=== PATIENT | male | born 1950 | race Caucasian/White ===

== ENCOUNTER 2024-05-13 13:03 | Outpatient (CLI) | payer MEDICARE, OTHER, SELFPAY ==
--- NOTE | 2024-05-13 13:05 | MR_ITS ---
FINAL REPORT CLINICAL HISTORY: Cervical spondylosis with radiculopathy COMPARISON: None FINDINGS: Multiplanar MR imaging of the cervical spine was performed without contrast. There is motion artifact on many of the images decreasing sensitivity of this exam. On the sagittal T2-weighted images, disc degeneration is seen throughout. There is no evidence of fracture. The vertebral alignment is normal. The cervical spinal cord has an unremarkable appearance without evidence of mass, edema or syrinx. No significant canal stenosis is identified. The cervicomedullary junction is normal. C2-3: Uncovertebral osteophytes. Moderate right and mild left neural foraminal narrowing. C3-4: Disc osteophyte complex. Severe bilateral neural foraminal narrowing. C4-5: Annular disc bulge. Moderate right and mild left neural foraminal narrowing. C5-6: Disc osteophyte complex. Severe right and mild left neural foraminal narrowing. C6-7: Disc osteophyte complex. Severe right and mild left neural foraminal narrowing. C7-T1: Small uncovertebral osteophytes. Mild right neural foraminal narrowing. IMPRESSION: Multilevel degenerative disc disease as above. Reviewed, Interpreted and Dictated by Trevor Zepeda III, MD Transcribed by Nuha Butler Authenticated and [facility]
--- NOTE | 2024-05-13 13:52 | XR_ITS ---
FINAL REPORT CLINICAL HISTORY: Neck Pain COMPARISON: None FINDINGS: 5 views of the cervical spine were obtained including flexion and extension views. There is no acute fracture. There is moderate degenerative change. Mild anterolisthesis is noted of L4 on L5 and L5 on L6 which does not significantly change with flexion but partially reduces with extension. Coronary artery calcifications are noted. IMPRESSION: Moderate degenerative changes without acute bony abnormality. No significant change with flexion but partial reduction of anterolisthesis on extension. Reviewed, Interpreted and Dictated by Trevor Zepeda III, MD Transcribed by Nuha Butler Authenticated and [facility]
--- NOTE | 2024-05-13 13:57 | CT_ITS ---
FINAL REPORT TECHNIQUE: Then section axial CT images of the chest were obtained with contrast. Three-D reformatted images were also obtained.This study was performed with techniques to keep radiation doses as low as reasonably achievable (ALARA). Individualized dose reduction techniques using automated exposure control or adjustment of mA and/or kV according to the patient's size were employed. CLINICAL HISTORY: FIBROSIS OF LUNG COMPARISON: None FINDINGS: There is no evidence of pulmonary embolism. There is no evidence dissection. There is however a 46 mm ascending thoracic aorta aneurysm. Cardiomegaly is present. There is no evidence of mediastinal or hilar mass or adenopathy. There is a 3 mm right upper lobe nodule seen on image #38. There is also a 3 mm nodule adjacent to the right major fissure best seen on image #50. These are most likely benign. Mild atelectasis versus scar is present. Limited images of the upper abdomen are unremarkable. IMPRESSION: No evidence of pulmonary embolism. 46 mm ascending thoracic aortic aneurysm without evidence of dissection. Reviewed, Interpreted and Dictated by Trevor Zepeda III, MD Transcribed by Sandra Rossi Authenticated and [facility]
[2024-05-13 14:30] LABS: Blood Urea Nitrogen 12 mg/dl (9-20); Estimated Glomerular Filt Rate 94 ml/min (>60); GFR (African American) 114 ML/MIN (>60)
[2024-05-13] MEDS: SODIUM CHLORIDE 0.9% 10ML SYR (RAD ONLY) 10 ML IV (14:57)
[2024-05-13] MEDS: 0.9 % SODIUM CHLORIDE 50 ML VIAL IV (14:57)
[2024-05-13] MEDS: IOPAMIDOL-370 (76%);100ML BOTTLE 100 ML IV (14:57)
== END 2024-05-13 23:59 | disposition home or self-care (01) ==
LOC: RAD 13:05
PROVIDERS: PCP Family Medicine; Visit Provider Nurse Practitioner Family
DX: M47.22 Other spondylosis with radiculopathy, cervical region (principal); M54.2 Cervicalgia
CPT/HCPCS: 36415; 71275; 72052; 72141; 82565; 84520; Q9967

== ENCOUNTER 2024-06-03 09:59 | Outpatient (POV) | payer MEDICARE, OTHER, SELFPAY ==
--- NOTE | 2024-06-03 10:22 | EXP.PAIN.OV ---
HPI Data of Consult Patient: new to practice Consult date: 06/03/24 Requesting Physician: Samanta Conte APRN Primary Care Provider: Ruby Choi Consult Narrative Reason for consult: Left-sided neck pain, left shoulder pain, left thumb pain, low back pain History of present illness: Mr. Reyes is a 73 year old male who presents today as a new patient. He is a referral from Dr. Cole's office. Today he rates his pain a 3 out of 10 however states that the pain will get much worse with increased activity or movement. Patient does state that he has had a lot of these pains for years and progressively worsened. Patient states that he has chronic low back pain that over the last year has worsened and that was more prominent on the right side but now is the left. He states it is fairly constant and seems to be aggravated with certain movements such as bending twisting or lifting. Patient also states he has chronic neck pain along the left side that goes into his left shoulder and that also has where he jammed his thumb about 12 years ago and still has swelling and pain in this joint. Patient does state that he has a history of previous parotid gland surgery along the left side and that there was some nerve damage. He states that he has a tingling, swelling that feels like it is inside of his ear. Patient does state that overall the neck and shoulder pain is the worst pain and it does interfere with his ability perform activities of daily living such as cooking and cleaning. Patient does state that it is a generalized steady achy sensation that is just there. Patient denies any prior neck surgery or injection history. He does take ibuprofen and states it helps some. He does state however that the pain when he lays down it affects his sleeping. He is interested in any options we may be able to provide. He states he did just moved to [place] back in January from [place]. His Juan C has been reviewed and is appropriate. CC: Samanta Conte APRN [facility] Disclaimer: The information contained in this section may have been updated after the patient was seen, as this information can be updated by other users. Medical History (Updated 06/03/24 @ 10:48 by Samanta Conte APRN) Gastritis Cervical spondylosis with radiculopathy History of abdominal hernia Macular degeneration Meningioma History of skin cancer Thumb pain Facial numbness Hearing loss NANDO (obstructive sleep apnea) Hyperlipemia Hypertension History of aortic aneurysm Surgical History History of cardiac cath History of prostate biopsy History of hernia repair History of tonsillectomy History of appendectomy History of cholecystectomy History of parotid gland removal Family History Other Cancer Coronary artery disease Hypertension Social History (Updated 05/16/24 @ 16:08 by Louann Diaz) Smoking Status: Never smoker alcohol intake: current alcohol intake frequency: a few times a week substance use type: denies use current occupational status: retired Travel in the last 8 weeks: Inside the [place] household members: family housing: house marital status: other details: number of children: 4 Meds Home Medications and Allergies Home Medications ?Medication ?Instructions ?Recorded ?Confirmed ?Type B-complex with vitamin C 1 cap PO DAILY 04/16/24 05/16/24 History aspirin 81 mg tablet,delayed 81 mg PO DAILY 04/16/24 05/16/24 History release (Adult Aspirin Regimen) benazepril 20 mg tablet 20 mg PO DAILY 04/16/24 05/16/24 History cholecalciferol (vitamin D3) 50 50 mcg PO DAILY 04/16/24 05/16/24 History mcg (2,000 unit) capsule metoprolol succinate 25 mg 25 mg PO DAILY 04/16/24 05/16/24 History tablet,extended release 24 hr omega-3 fatty acids 1,250 mg 1,250 mg PO DAILY 04/16/24 05/16/24 History capsule rosuvastatin 10 mg tablet 10 mg PO DAILY 04/16/24 05/16/24 History triamterene 37.5 1 tab PO DAILY 04/16/24 05/16/24 History mg-hydrochlorothiazide 25 mg tablet vitamins A,C,A-fhcn-jpccsc 4,296 1 cap PO BID 04/16/24 05/16/24 History mcg-226 mg-90 mg capsule (PreserVision AREDS) esomeprazole magnesium 40 mg 40 mg PO DAILY #30 caps 05/16/24 05/16/24 Rx capsule,delayed release (Nexium) New Prescriptions to Start Prescriptions: Allergies Allergy/AdvReac Type Severity Reaction Status Date / Time atorvastatin [From Lipitor] Allergy Intermediate Verified 05/16/24 16:07 niacin Allergy Intermediate Verified 05/16/24 16:07 Objective Narrative: Physical Exam: General: Alert and oriented x3, no acute distress, pleasant and cooperative Lungs: Respirations even and unlabored, symmetrical chest expansion Eyes: PERRL Musculoskeletal: Flexion and extension of cervical [spine] somewhat guarded secondary to pain, [antalgic gait noted] point tenderness along the left cervical paraspinous and left trapezius with a positive Kemps test of his low back Neurological: Speech clear, no gross sensory deficit Additional findings Additional findings: FINDINGS: Multiplanar MR imaging of the cervical spine was performed without contrast. There is motion artifact on many of the images decreasing sensitivity of this exam. On the sagittal T2-weighted images, disc degeneration is seen throughout. There is no evidence of fracture. The vertebral alignment is normal. The cervical spinal cord has an unremarkable appearance without evidence of mass, edema or syrinx. No significant canal stenosis is identified. The cervicomedullary junction is normal. C2-3: Uncovertebral osteophytes. Moderate right and mild left neural foraminal narrowing. C3-4: Disc osteophyte complex. Severe bilateral neural foraminal narrowing. C4-5: Annular disc bulge. Moderate right and mild left neural foraminal narrowing. C5-6: Disc osteophyte complex. Severe right and mild left neural foraminal narrowing. C6-7: Disc osteophyte complex. Severe right and mild left neural foraminal narrowing. C7-T1: Small uncovertebral osteophytes. Mild right neural foraminal narrowing. IMPRESSION: Multilevel degenerative disc disease as above. Reviewed, Interpreted and Dictated by Trevor Zepeda III, MD Transcribed by Nuha Butler Authenticated and [facility] Assessment and Plan *Assessment and plan (1) Lumbar facet arthropathy: Status: Acute Category: Medical Code(s): M47.816 - Spondylosis without myelopathy or radiculopathy, lumbar region (2) Low back pain: Status: Acute Category: Medical Code(s): M54.50 - Low back pain, unspecified (3) Myofascial pain: Status: Acute Category: Medical Code(s): M79.18 - Myalgia, other site (4) Facial numbness: Status: Acute Category: Medical Code(s): R20.0 - Anesthesia of skin (5) Thumb pain: Status: Acute Category: Medical Code(s): M79.646 - Pain in unspecified finger(s) (6) Neck pain: Status: Acute Category: Medical Code(s): M54.2 - Cervicalgia (7) Left shoulder pain: Status: Acute Category: Medical Code(s): M25.512 - Pain in left shoulder Plan Patient is experiencing pain in multiple areas however did state that his neck is worse overall. Patient did have limited range of motion of his cervical spine with point tenderness noted at his left paraspinous and left trapezius muscles. I did discuss with patient that he may benefit from trigger point injections at this location. Risk and benefits were discussed with patient and he would like to proceed forward with this plan of care. Patient did also have a positive Kemps test and was counseled that in future he may benefit from a lumbar medial branch block. We will follow-up with this at future visits. I did also discuss that once we do the trigger point injection if he is still experiencing numbness or symptoms radiating down the left extremity that it might be beneficial to look at doing cervical epidurals as well as nerve blocks for his facial pain and left ear pain. Patient has tried and failed conservative therapy including continued at home stretching exercise for longer than 12 weeks. Patient will be scheduled for trigger point injections of his left paraspinous and left trapezius muscles. I will also order the patient a compounded cream. Patient has been instructed to contact the clinic with any concerns before the next appointment. Dr. Minaya has reviewed this note and agrees with this plan of care. This note was dictated using voice recognition software and make contain errors or omissions. All injections are used with Lidocaine or Bupivacaine and Depo Medrol.
[2024-06-03 11:28] VITALS: BP 144/81; PULSE 54; RESP 18; O2SAT 98; BMI 28.7
== END 2024-06-03 23:59 | disposition home or self-care (01) ==
LOC: SC.PAIN 10:00
PROVIDERS: PCP Family Medicine; Visit Provider Nurse Practitioner Family
DX: M47.816 Spondylosis without myelopathy or radiculopathy, lumbar region (principal); M54.50 Low back pain, unspecified; M79.18 Myalgia, other site; R20.0 Anesthesia of skin; M79.646 Pain in unspecified finger(s); M54.2 Cervicalgia; M25.512 Pain in left shoulder; Z73.89 Other problems related to life management difficulty
CPT/HCPCS: 99202; G0463

== ENCOUNTER 2024-07-02 10:49 | Day surgery (SDC) | payer MEDICARE, OTHER, SELFPAY ==
[2024-07-02 10:59] VITALS: BP 125/70; PULSE 61; RESP 16; TEMP 36.5; O2SAT 97; BMI 28.7
[2024-07-02] MEDS: methylPREDNISolone ACETATE 80MG/ML VIAL 80 MG (11:24)
[2024-07-02] MEDS: BUPIVACAINE 0.25% 10ML INJ 25 MG IJ (11:24)
[2024-07-02] MEDS: LIDOCAINE 1% 5ML PF VIAL 5 ML (11:24)
[2024-07-02 11:26] VITALS: BP 119/72; PULSE 46; RESP 18; O2SAT 96
[2024-07-02 11:29] VITALS: BP 119/72; PULSE 44; RESP 18; O2SAT 97
[2024-07-02 11:40] VITALS: BP 118/71; PULSE 45; RESP 16; O2SAT 97
--- NOTE | 2024-07-02 11:45 | EXP.PAIN.PRO ---
Procedure Date: 07/02/24 Time: 11:10 Anesthesiologist:: Curtis Villaseñor CRNA Complications:: None Pre-procedure Diagnosis:: Myofascial pain left cervical paraspinous muscle, left trapezius muscle, left rhomboid muscle. Post-procedure Diagnosis:: Same. Indications for Procedure:: Patient is a very pleasant 73-year-old male who comes our clinic today for trigger point injections of cortisone and local anesthetic in the left posterior cervical area as well as left trapezius muscle. Patient describes left cervical neck pain as constant, dull, aching. Difficulty with right and left rotation due to the left-sided pain. Patient also describes pain medial to the scapula. Procedure Details:: Details of the procedure explained to the patient. The patient taken procedure placed in the sitting position. The area over the left cervical spine as well as left trapezius muscle and left rhomboid muscle area was cleaned using chlorhexidine as a cleansing solution. Using a 25-gauge inch and half needle the distal left posterior cervical paraspinous muscle was injected with 2 cc of a solution containing 0.25% Marcaine +1% lidocaine and 40 mg of Depo-Medrol. The left trapezius muscle was injected with 2 cc in 3 separate areas medial to lateral at the same solution. The left rhomboid muscle was injected into separate areas. 2 cc at each area. Patient tolerated procedure without difficulty. There are no complications. Plan and Disposition:: Patient was discharged without incident.
== END 2024-07-02 11:40 | disposition home or self-care (01) ==
LOC: SC.PAINP 10:50
PROVIDERS: PCP Family Medicine; Visit Provider Nurse Anesthetist, Certified Registered
DX: M79.18 Myalgia, other site (principal)
CPT/HCPCS: 20553; J1010

== ENCOUNTER 2024-07-05 09:50 | Outpatient (CLI) | payer MEDICARE, OTHER, SELFPAY ==
[2024-07-05] MEDS: ALBUTEROL 0.083% 2.5 MG/3 ML NEB IH (10:43)
== END 2024-07-05 23:59 | disposition home or self-care (01) ==
LOC: RT 09:50
PROVIDERS: PCP Family Medicine; Visit Provider Internal Medicine Pulmonary Disease
DX: R06.09 Other forms of dyspnea (principal)
CPT/HCPCS: 94060; 94618; 94726; 94729; J7613

== ENCOUNTER 2024-07-17 11:11 | Outpatient (POV) | payer MEDICARE, OTHER, SELFPAY ==
--- NOTE | 2024-07-17 11:54 | A.OFFVIS_ITS ---
[facility] Disclaimer: The information contained in this section may have been updated after the patient was seen, as this information can be updated by other users. Medical History (Updated 07/05/24 @ 12:08 by Dora Garrison MD) Asthma Gastritis Cervical spondylosis with radiculopathy History of abdominal hernia Macular degeneration Meningioma History of skin cancer Thumb pain Facial numbness Hearing loss NANDO (obstructive sleep apnea) Hyperlipemia Hypertension History of aortic aneurysm Surgical History History of cardiac cath History of prostate biopsy History of hernia repair History of tonsillectomy History of appendectomy History of cholecystectomy History of parotid gland removal Family History Other Cancer Coronary artery disease Hypertension Social History Smoking Status: Never smoker alcohol intake: current alcohol intake frequency: a few times a week substance use type: denies use current occupational status: retired Travel in the last 8 weeks: None household members: family housing: house marital status: other details: number of children: 4 PM Subjective & Objective Subjective Subjective:: Patient is a pleasant 73-year-old male who presents today for follow-up of trigger point injections of his left cervical paraspinous, left trapezius and left rhomboid muscles on 07/02/2024. Today he rates his pain a 1 out of 10 they are around his shoulder however does rate his overall neck a 7 out of 10. He denies any new trauma or injury. He does state that the trigger point injecti ons did ease up a lot of the tension he has in his muscles however that the overall chronic neck pain with radiating numbness and tingling does still really bother him. He states that it is into both extremities. Patient at her last visit had also been discussed with the fact that in future he might also benefit from a cervical epidural. Patient states he is open to this option. He states that the compounded cream he did get but he forgets about it to really see whether or not if it provided significant improvement. Patient has tried and failed conservative therapy including continued at home stretching exercise for longer than 12 weeks. His Juan C has been reviewed and is appropriate. Review of Systems: General: No recent weight changes, no fever, no sleep disturbances Respiratory: No cough, no shortness of air, no recurring pulmonary infections Cardiovascular/peripheral vascular: No chest pain, no palpitations, no edema, no shortness of breath Gastrointestinal: No new onset incontinence, normal bowel movements reported Genitourinary: No new onset incontinence Musculoskeletal: Neck pain, arm pain Psychiatric: [Normal mood/affect] Neurological: [Denies weakness in extremities], [denies balance issues] Pain at rest (0-10 scale): 7 Objective Objective:: Physical Exam: General: Alert and oriented x3, no acute distress, pleasant and cooperative Lungs: Respirations even and unlabored, symmetrical chest expansion Eyes: PERRL Musculoskeletal: Flexion and extension of cervical [spine] somewhat guarded secondary to pain, [antalgic gait noted] positive Spurling's test Neurological: Speech clear, no gross sensory deficit Has patient had previous pain injection?: Yes Percent improvement in pain since last injection: 90% Conservative treatment options previously tried: Home exercise plan Length of treatment: Longer than 12 weeks Meds Home Medications and Allergies Home Medications ?Medication ?Instructions ?Recorded ?Confirmed ?Type B-complex with vitamin C 1 cap PO DAILY 04/16/24 07/05/24 History aspirin 81 mg tablet,delayed 81 mg PO DAILY 04/16/24 07/05/24 History release (Adult Aspirin Regimen) benazepril 20 mg tablet 20 mg PO DAILY 04/16/24 07/05/24 History cholecalciferol (vitamin D3) 50 50 mcg PO DAILY 04/16/24 07/05/24 History mcg (2,000 unit) capsule omega-3 fatty acids 1,250 mg 1,250 mg PO DAILY 04/16/24 07/05/24 History capsule rosuvastatin 10 mg tablet 10 mg PO DAILY 04/16/24 07/05/24 History vitamins A,C,B-pkkp-nowggj 4,296 1 cap PO BID 04/16/24 07/05/24 History mcg-226 mg-90 mg capsule (PreserVision AREDS) finasteride 5 mg tablet 5 mg PO DAILY 06/26/24 07/05/24 History metoprolol succinate 25 mg 12.5 mg PO DAILY 06/26/24 07/05/24 History tablet,extended release 24 hr tamsulosin 0.4 mg capsule 0.4 mg PO HS 06/26/24 07/05/24 History New Prescriptions to Start Prescriptions: Allergies Allergy/AdvReac Type Severity Reaction Status Date / Time atorvastatin (From Lipitor) Allergy Intermediate Verified 07/05/24 11:35 niacin Allergy Intermediate Verified 07/05/24 11:35 Assessment and Plan *Assessment and plan (1) Cervical spondylosis with radiculopathy: Problem Comment: Neck pain with radicular signs and symptoms Status: Suspected Category: Medical Code(s): M47.22 - Other spondylosis with radiculopathy, cervical region (2) Cervical spondylosis with radiculopathy: Status: Acute Category: Medical Code(s): M47.22 - Other spondylosis with radiculopathy, cervical region (3) Neck pain: Status: Acute Category: Medical Code(s): M54.2 - Cervicalgia Plan Patient is experiencing worsening pain in and around his neck with radiating numbness and tingling into his upper extremities. Patient did have limited range of motion of his cervical spine and a positive Spurling's test. I did discuss over the risk and benefits of cervical epidural steroid injection and he would like to proceed forward with this plan of care. Patient has tried and failed conservative therapy including continued at home stretching exercise for longer than 12 weeks. Patient will be submitted for a VIANEY C5-C6 under fluoroscopy. Patient did have bone spurs along with severe right and mild left neuroforaminal narrowing at this level. Patient is not on any blood thinners. Patient has been instructed to contact the clinic with any concerns before the next appointment. Dr. Minaya has reviewed this note and agrees with this plan of care. This note was dictated using voice recognition software and make contain errors or omissions. All injections are used with Lidocaine or Bupivacaine and Depo Medrol.
[2024-07-17 13:33] VITALS: BP 131/78; PULSE 55; RESP 14; O2SAT 98; BMI 28.7
== END 2024-07-17 23:59 | disposition home or self-care (01) ==
LOC: SC.PAIN 11:12
PROVIDERS: PCP Family Medicine; Visit Provider Nurse Practitioner Family
DX: M47.22 Other spondylosis with radiculopathy, cervical region (principal); M54.2 Cervicalgia
CPT/HCPCS: 99212; G0463

== ENCOUNTER 2024-08-06 12:41 | Day surgery (SDC) | payer MEDICARE, OTHER, SELFPAY ==
[2024-08-06 13:06] VITALS: BP 116/80; PULSE 58; RESP 16; TEMP 36.6; O2SAT 99; BMI 28.7
--- NOTE | 2024-08-06 13:14 | P.PCN_ITS ---
Procedure Date: 08/06/24 Time: 13:15 Anesthesiologist:: Curtis Villaseñor CRNA Complications:: None Pre-procedure Diagnosis:: Degenerative disc cervical spine multilevels. Cervical radiculopathy. Post-procedure Diagnosis:: Same. Indications for Procedure:: Patient is a pleasant 73-year-old male who comes our clinic today for cervical epidural steroid injection. Patient describes posterior cervical neck pain as well as bilateral arm radicular symptoms at times. He rates his pain 7/10. Procedure Details:: Procedure:Cervical epidural steroid injection Informed consent was obtained and the risks and benefits of the procedure were explained to the patient. The patient was taken to the procedure room and noninvasive monitors placed, including noninvasive blood pressure cuff and pulse oximeter. The neck was prepped using Chloraprep as a cleansing solution. The C6- C7 interspace was viewed using fluroscopy. The skin and subcutaneous tissues were anesthetized using lidocaine 1.5% and a 25-gauge needle. After this an 18- gauge Touhy epidural needle was placed into the C6-C7 interspace under fluroscopy guidance and advanced using loss of resistance to air until the epidural space was encountered. After confirmation of needle placement in the epidural space using contrast dye, a solution containing normal saline, 2 mL and Depo-Medrol 80 mg was incrementally injected into the cervical epidural space.~ The patient tolerated the procedure well with no complications. The patient was observed in the Pain Clinic and then discharged home neurologically intact. Plan and Disposition:: Patient was discharged without incident.
[2024-08-06 13:15] VITALS: BP 146/88; PULSE 56; RESP 18; O2SAT 98
[2024-08-06] MEDS: methylPREDNISolone ACETATE 80MG/ML VIAL 80 MG (13:15)
[2024-08-06 13:16] VITALS: BP 146/88; PULSE 56; RESP 18; O2SAT 98
[2024-08-06] MEDS: IOPAMIDOL-200 (41%);10ML VIAL 10 ML IV (13:18)
[2024-08-06 13:25] VITALS: BP 141/79; PULSE 52; RESP 16; O2SAT 99
== END 2024-08-06 13:25 | disposition home or self-care (01) ==
PROVIDERS: PCP Family Medicine; Visit Provider Nurse Anesthetist, Certified Registered
DX: M50.30 Other cervical disc degeneration, unspecified cervical region (principal); M54.12 Radiculopathy, cervical region
CPT/HCPCS: 62321; J1010; Q9966

== ENCOUNTER 2024-08-26 11:21 | Outpatient (POV) | payer MEDICARE, OTHER, SELFPAY ==
[2024-08-26 11:47] VITALS: BP 144/82; PULSE 69; RESP 16; O2SAT 98; BMI 28.7
--- NOTE | 2024-08-26 11:51 | A.OFFVIS_ITS ---
[facility] Disclaimer: The information contained in this section may have been updated after the patient was seen, as this information can be updated by other users. Medical History Asthma Gastritis Cervical spondylosis with radiculopathy History of abdominal hernia Macular degeneration Meningioma History of skin cancer Thumb pain Facial numbness Hearing loss NANDO (obstructive sleep apnea) Hyperlipemia Hypertension History of aortic aneurysm Surgical History History of cardiac cath History of prostate biopsy History of hernia repair History of tonsillectomy History of appendectomy History of cholecystectomy History of parotid gland removal Family History Other Cancer Coronary artery disease Hypertension Social History Smoking Status: Never smoker alcohol intake: current alcohol intake frequency: a few times a week substance use type: denies use current occupational status: other Travel in the last 8 weeks: None household members: family housing: house marital status: other details: number of children: 4 Have you lived/traveled outside [place] in past 30 days?: No Contact w/someone who lives/traveled outside [place] past 30 days?: No Exposure to someone with infectious disease in past 14 days?: No Do you have a fever (greater than 100.4 F or 38 C)?: No Have you tested positive for COVID-19: No Exposed to someone with COVID-19 in past 14 days?: No Do you have a sore throat?: No Do you have a cough?: No Do you have any weakness?: No Do you have any diarrhea?: No Are you experiencing any unusual bleeding?: No Do you have any muscle aches/pain?: No Do you have any abdominal pain?: No Are you experiencing loss of taste or smell?: No PM Subjective & Objective Subjective Subjective:: Patient is a pleasant 73-year-old male who presents today for follow-up of his cervical epidural C6 or C7 on 08/06/2024. He does state that he has had at least 50% improvement and that it is still helping. He denies any other changes. Patient does state that he is moving to [place] to try and work it out with his and this will be his last appointment with our office. His Juan C has been reviewed and is appropriate. Review of Systems: General: No recent weight changes, no fever, no sleep disturbances Respiratory: No cough, no shortness of air, no recurring pulmonary infections Cardiovascular/peripheral vascular: No chest pain, no palpitations, no edema, no shortness of breath Gastrointestinal: No new onset incontinence, normal bowel movements reported Genitourinary: No new onset incontinence Musculoskeletal: Neck pain Psychiatric: [Normal mood/affect] Neurological: [Denies weakness in extremities], [denies balance issues] Pain at rest (0-10 scale): 4 Objective Objective:: Physical Exam: General: Alert and oriented x3, no acute distress, pleasant and cooperative Lungs: Respirations even and unlabored, symmetrical chest expansion Eyes: PERRL Musculoskeletal: Flexion and extension of cervical [spine] somewhat guarded secondary to pain, [antalgic gait noted] Neurological: Speech clear, no gross sensory deficit Has patient had previous pain injection?: Yes Percent improvement in pain since last injection: 50% Conservative treatment options previously tried: Home exercise plan Length of treatment: Longer than 12 weeks Meds Home Medications and Allergies Home Medications ?Medication ?Instructions ?Recorded ?Confirmed ?Type B-complex with vitamin C 1 cap PO DAILY 04/16/24 08/06/24 History aspirin 81 mg tablet,delayed 81 mg PO DAILY 04/16/24 08/06/24 History release (Adult Aspirin Regimen) benazepril 20 mg tablet 20 mg PO DAILY 04/16/24 08/06/24 History cholecalciferol (vitamin D3) 50 50 mcg PO DAILY 04/16/24 08/06/24 History mcg (2,000 unit) capsule omega-3 fatty acids 1,250 mg 1,250 mg PO DAILY 04/16/24 08/06/24 History capsule rosuvastatin 10 mg tablet 10 mg PO DAILY 04/16/24 08/06/24 History vitamins A,C,J-fglw-ebnyqq 4,296 1 cap PO BID 04/16/24 08/06/24 History mcg-226 mg-90 mg capsule (PreserVision AREDS) finasteride 5 mg tablet 5 mg PO DAILY 06/26/24 08/06/24 History tamsulosin 0.4 mg capsule 0.4 mg PO HS 06/26/24 08/06/24 History triamterene 37.5 1 tab PO DAILY Fluid 07/17/24 08/06/24 History mg-hydrochlorothiazide 25 mg tablet New Prescriptions to Start Prescriptions: Allergies Allergy/AdvReac Type Severity Reaction Status Date / Time atorvastatin (From Lipitor) Allergy Intermediate Verified 07/05/24 11:35 niacin Allergy Intermediate Verified 07/05/24 11:35 Assessment and Plan *Assessment and plan (1) Cervical spondylosis with radiculopathy: Status: Acute Category: Medical Code(s): M47.22 - Other spondylosis with radiculopathy, cervical region Plan Patient has had significant improvement and does not require any additional injection therapy and he is also moving. Patient was wished the best and if we can ever be of any assistance in the future feel free to reach out. Patient has been instructed to contact the clinic with any concerns before the next appointment. Dr. Minaya has reviewed this note and agrees with this plan of care. This note was dictated using voice recognition software and make contain errors or omissions. All injections are used with Lidocaine, Bupivacaine and Depo Medrol. Occasionally urine drug screen is needed to verify patient's compliance with our office pain contract. This is ordered based off specific treatments related to chronic pain with the potential to abuse certain medications.
== END 2024-08-26 23:59 | disposition home or self-care (01) ==
LOC: SC.PAIN 11:26
PROVIDERS: PCP Family Medicine; Visit Provider Nurse Practitioner Family
DX: M47.22 Other spondylosis with radiculopathy, cervical region (principal)
CPT/HCPCS: 99212; G0463